=== PATIENT | male | born 1975 | race Two or more races ===

== ENCOUNTER 2023-01-27 09:24 | Outpatient (CLI) | payer OTHER | END 2023-01-27 09:28 | disposition home or self-care (01) | LOC: LAB 09:24 | DX: D64.9 Anemia, unspecified (principal); I10 Essential (primary) hypertension; E03.9 Hypothyroidism, unspecified; E78.2 Mixed hyperlipidemia; R97.20 Elevated prostate specific antigen [PSA]; R30.0 Dysuria; R10.9 Unspecified abdominal pain ==

== ENCOUNTER → 2023-11-24 07:59 | Outpatient (CLI) | payer OTHER ==
[2023-11-24 09:54] LABS: HEMATOCRIT 43.7 % (39.0-48.0); HEMOGLOBIN 14.9 g/dL (13-16.00); MEAN CORPUSCULAR HEMOGLOBIN 31.8 pg (27.00-32.0); MEAN CORPUSCULAR HGB CONC 34.2 g/dl (32.0-36.0); PLATELET COUNT 240 K/uL (150-450); RED CELL DISTRIBUTION WIDTH 13.5 % (11.5-14.5)
[2023-11-24 10:20] LABS: PH,URINE 5.5 (5.0-8.0); URINE APPEARANCE Clear; URINE BILIRRUBIN Negative (NEGATIVE); URINE BLOOD Moderate; URINE COLOR Yellow; URINE GLUCOSE Negative (NEGATIVE); URINE LEUKOCYTE Negative; URINE NITRATE Negative; URINE PROTEIN Negative (NEGATIVE); URINE UROBILINOGEN 0.2 E.U./dl
[2023-11-24 10:25] LABS: URINE BACTERIA 16.3 uL (0.0-1933); URINE RBC 22.1 uL (0.0-20.8); URINE WBC 2.6 uL (0.0-23.2)
[2023-11-24 10:36] LABS: URINE EPITHELIAL CELLS 0.9 uL (0.0-38.8)
[2023-11-24 10:56] LABS: ALBUMIN 3.6 gm/dL (3.4-5.0); BILIRUBIN TOTAL 0.51 mg/dL (0.3-1.2); CALCIUM 8.9 mg/dL (8.5-10.1); CHOL HDL RATIO 3.8 (0-5.0); CREATININE SERUM 0.92 mg/dL (0.70-1.30); GFR 87.08; POTASSIUM 3.93 mEq/L (3.5-5.1); PROSTATIC SPECIFIC ANTIGEN 1.2 NG/ML (0.010-4.00); TOTAL PROTEIN 6.6 gm/dL (6.4-8.2); TSH 1.49 uIU/mL (0.358-3.74)
== END | disposition home or self-care (01) ==
LOC: LAB 07:59
DX: N42.89 Other specified disorders of prostate (principal); E78.5 Hyperlipidemia, unspecified; Z12.5 Encounter for screening for malignant neoplasm of prostate; N40.0 Benign prostatic hyperplasia without lower urinary tract symptoms

== ENCOUNTER 2024-08-26 19:27 | Emergency (ER) | payer OTHER ==
[~2024-08-26] VITALS: Ht 172.7 cm; Wt 89.8 kg
[2024-08-26] MEDS ORDERED: MUCINEX DM ER1 EACH PO (22:31)
[2024-08-26] MEDS ORDERED: OSEL75CA PO (22:31)
[2024-08-26] MEDS ORDERED: SINGULAIR10 MG PO (22:31)
[2024-08-26] MEDS ORDERED: ZYRTEC10 MG PO (22:31)
== END 2024-08-26 22:55 | disposition home or self-care (01) ==
LOC: ER 19:30
DX: R53.81 Other malaise (principal); J10.1 Influenza due to other identified influenza virus with other respiratory manifestations

== ENCOUNTER 2024-10-04 07:56 | Outpatient (CLI) | payer OTHER ==
[~2024-10-04 07:56] MED LIST: MUCINEX DM ER1 EACH PO; OSEL75CA PO; SINGULAIR10 MG PO; ZYRTEC10 MG PO
[2024-10-04 10:00] LABS: ALBUMIN 3.6 gm/dL (3.4-5.0); BILIRUBIN TOTAL 0.31 mg/dL (0.3-1.2); CHOL HDL RATIO 4.4 (0-5.0); CREATININE SERUM 0.93 mg/dL (0.70-1.30); GFR 85.66; GLOBULINA 3.2 G/DL (2.4-3.5); HEMATOCRIT 42.6 % (39.0-48.0); HEMOGLOBIN 14.3 g/dL (13-16.00); MEAN CELL VOLUME 93.7 fL (80.0-100.00); MEAN CORPUSCULAR HEMOGLOBIN 31.5 pg (27.00-32.0); MEAN CORPUSCULAR HGB CONC 33.6 g/dl (32.0-36.0); PLATELET COUNT 157 K/uL (150-450); POTASSIUM 4.2 mEq/L (3.5-5.1); PROSTATIC SPECIFIC ANTIGEN 0.912 NG/ML (0.010-4.00); RED BLOOD COUNT 4.54 M/uL (4.00-6.00); T4 TOTAL 7.92 UG/DL (4.5-12.1); TOTAL PROTEIN 6.8 gm/dL (6.4-8.2); TSH 1.63 uIU/mL (0.358-3.74)
== END 2024-10-04 08:04 | disposition home or self-care (01) ==
LOC: RAD 07:56
DX: D64.9 Anemia, unspecified (principal); I10 Essential (primary) hypertension; E03.9 Hypothyroidism, unspecified; E78.2 Mixed hyperlipidemia; R97.20 Elevated prostate specific antigen [PSA]; M19.90 Unspecified osteoarthritis, unspecified site

== ENCOUNTER 2024-12-23 05:50 | Day surgery (SDC) | payer OTHER ==
[2024-12-15 09:27] VITALS: BP 131/85
[2024-12-15 09:50] LABS: HEMOGLOBIN 14.6 g/dL (13-16.00); MEAN CELL VOLUME 94.2 fL (80.0-100.00); MEAN CORPUSCULAR HEMOGLOBIN 31.2 pg (27.00-32.0); MEAN CORPUSCULAR HGB CONC 33.1 g/dl (32.0-36.0); PLATELET COUNT 234 K/uL (150-450); RED BLOOD COUNT 4.68 M/uL (4.00-6.00); RED CELL DISTRIBUTION WIDTH 13.8 % (11.5-14.5)
[2024-12-15 09:51] LABS: URINE APPEARANCE Clear; URINE BILIRRUBIN Negative (NEGATIVE); URINE BLOOD Small; URINE COLOR Yellow; URINE GLUCOSE Negative (NEGATIVE); URINE KETONE Negative (NEGATIVE); URINE LEUKOCYTE Negative; URINE NITRATE Negative; URINE PROTEIN Negative (NEGATIVE); URINE UROBILINOGEN 0.2 E.U./dl
[2024-12-15 09:53] LABS: URINE BACTERIA 56.2 uL (0.0-1933); URINE RBC 42.2 uL (0.0-20.8); URINE WBC 11.6 uL (0.0-23.2)
[2024-12-15 09:58] LABS: URINE EPITHELIAL CELLS 0.9 uL (0.0-38.8)
[2024-12-15 10:06] LABS: INR 0.96; PARTIAL THROMBOPLASTIN TIME 28.1 SECONDS (22.0-34.0); PROTHROMBIN TIME 10.5 SECONDS (9.0-11.5)
[2024-12-15 10:11] LABS: COVID-19 AG NEGATIVE (NEGATIVE)
[2024-12-15 11:20] LABS: ALBUMIN 3.8 gm/dL (3.4-5.0); BILIRUBIN TOTAL 0.46 mg/dL (0.3-1.2); CALCIUM 9.1 mg/dL (8.5-10.1); CHOL HDL RATIO 4.9 (0-5.0); CREATININE SERUM 0.92 mg/dL (0.70-1.30); GFR 86.73; GLOBULINA 3.2 G/DL (2.4-3.5); POTASSIUM 4.67 mEq/L (3.5-5.1)
[~2024-12-23] VITALS: Ht 177.8 cm; Wt 95.3 kg
[~2024-12-23 05:50] MED LIST changes: +VISTARIL50 MG/ML
[2024-12-23] MEDS ORDERED: LIDOCAINE HCL 1%/EPINEPHRINE 20ML VIAL IJ ONE (06:53)
[2024-12-23] MEDS ORDERED: BUPIVACAINE HCL/MPF 0.5% 30ML VIAL ONE (06:53)
[2024-12-23] MEDS ORDERED: CEFAZOLIN SODIUM 1,000 MG VIAL ONE (06:53)
[2024-12-23] MEDS ORDERED: MORPHINE SULFATE 4 MG/ML VIAL IV ONE ×2 (08:05→08:35)
[2024-12-23] MEDS ORDERED: DUI500 PO (08:41)
[2024-12-23] MEDS ORDERED: TRAM1TAB98 PO (08:41)
== END 2024-12-23 09:15 | disposition home or self-care (01) ==
LOC: CIR.AMB 05:50
PROVIDERS: ATTEND Orthopaedic Surgery
DX: M65.131 Other infective (teno)synovitis, right wrist (principal); G56.01 Carpal tunnel syndrome, right upper limb

== ENCOUNTER 2025-02-02 12:06 | Outpatient (CLI) | payer OTHER ==
[~2025-02-02 12:06] MED LIST changes: +DUI500 PO; +TRAM1TAB98 PO
== END 2025-02-02 12:13 | disposition home or self-care (01) ==
LOC: RAD 12:06
DX: M99.01 Segmental and somatic dysfunction of cervical region (principal); M99.02 Segmental and somatic dysfunction of thoracic region; M99.03 Segmental and somatic dysfunction of lumbar region; M25.561 Pain in right knee; M25.562 Pain in left knee

== ENCOUNTER 2025-03-17 20:44 | Emergency (ER) | payer OTHER ==
[~2025-03-17] VITALS: Ht 177.8 cm; Wt 94.8 kg
[2025-03-17 22:15] LABS: BASO % 0.6 % (0.1-1.2); EOS # 0.21 (0.04-0.54); EOS % 2.4 % (0.7-7.0); LYMPH # 2.51 (1.18-3.74); LYMPH % 29.2 % (19.3-53.1); MEAN PLATELET VOLUME 9.70 fl (9.4-12.4); MONO # 0.68 (0.24-0.82); MONO % 7.9 % (4.7-12.5); NEUT # 5.12 (1.56-6.13); NEUT % 59.7 % (34.0-71.1); RED CELL DISTRIBUTION WIDTH 12.9 % (11.6-14.4)
[2025-03-17 22:40] LABS: ALT/SGPT 29.0 U/L (12-78); AST/SGOT 15.0 U/L (15-37); BILIRUBIN TOTAL 0.23 mg/dL (0.3-1.2); BUN CREA RATIO 17.0 (7.0-25.0); CREATININE SERUM 1.09 mg/dL (0.70-1.30); GFR 71.32; GLOBULINA 3.4 G/DL (2.4-3.5); GLUCOSE FASTING 102.0 mg/dL (65-100); OSMOLALITY SERUM 289.0 MOSM/KG (275-295)
[2025-03-17 23:46] LABS: COVID-19 AG NEGATIVE (NEGATIVE)
== END 2025-03-18 | disposition home or self-care (01) ==
LOC: ER 20:44
PROVIDERS: Emergency Medicine
DX: R42 Dizziness and giddiness (principal); E78.00 Pure hypercholesterolemia, unspecified; Z20.822 Contact with and (suspected) exposure to COVID-19

== ENCOUNTER 2025-04-07 21:50 | Emergency (ER) | payer OTHER ==
[~2025-04-07] VITALS: Ht 177.8 cm; Wt 95.3 kg
[2025-04-07 22:02] VITALS: BP 124/74; O2SAT 98
[2025-04-07] MEDS ORDERED: KETOROLAC TROMETHAMINE 15 MG VIAL IV STA (23:11)
[2025-04-07] MEDS ORDERED: ORPHENADRINE CITRATE 30 MG/ML AMPUL IM STA (23:12)
[2025-04-07] MEDS ORDERED: TRAM1TAB98 PO (23:18)
[2025-04-07] MEDS ORDERED: ORPHENADRINE CITRATE 30 MG/ML AMPUL ONE (23:43)
[2025-04-07] MEDS ORDERED: KETOROLAC TROMETHAMINE 30 MG VIAL ONE (23:43)
== END 2025-04-07 23:53 | disposition home or self-care (01) ==
LOC: ER 21:50
DX: S86.912A Strain of unspecified muscle(s) and tendon(s) at lower leg level, left leg, initial encounter (principal); X58.XXXA Exposure to other specified factors, initial encounter; Y93.9 Activity, unspecified; Y92.89 Other specified places as the place of occurrence of the external cause; Y99.9 Unspecified external cause status

== ENCOUNTER 2025-04-08 15:06 | Outpatient (CLI) | payer OTHER | END 2025-04-08 15:17 | disposition home or self-care (01) | LOC: MRI 15:06 | PROVIDERS: ATTEND Emergency Medicine | DX: S86.912A Strain of unspecified muscle(s) and tendon(s) at lower leg level, left leg, initial encounter (principal) | CPT/HCPCS: 73721 ==